=== PATIENT | female | born 1930 | race Caucasian/White ===

== ENCOUNTER → 2016-07-12 | Outpatient (CLI) | payer MEDICARE | END | disposition home or self-care (01) | LOC: LABWHC1 11:30 | PROVIDERS: ATTEND Internal Medicine | DX: E16.2 Hypoglycemia, unspecified (principal) | CPT/HCPCS: 36415; 82941; 84681 ==

== ENCOUNTER → 2016-07-19 | Outpatient (CLI) | payer MEDICARE ==
--- NOTE | 2016-07-20 08:56 | MM ---
Reason for exam: additional evaluation requested from prior study. Last mammogram was performed 1 year ago. History: Patient is postmenopausal and has history of breast cancer at age 54. Family history of breast cancer in maternal aunt at age 70 and breast cancer in paternal aunt at age 70. Radiation therapy of the left breast, 1984. Lumpectomy of the left breast. Physical Findings: Nurse Summary: Findings indicate a 1 x 1.5cm nodule in the right breast in the 12 o'clock position (nurse ts). [facility] Diagnostic Mammo w CAD [facility] Bilateral CC and MLO view(s) were taken. Prior study comparison: July 14, 2015, bilateral MG 3d diag mammo w/cad [place]. There are scattered fibroglandular densities. There is chronic nodularity in the right breast. Asymmetric breast tissue in the right greater than left breast. These results were verbally communicated with the patient and result sheet given to the patient on 07/19/16. ASSESSMENT: Incomplete: need additional imaging evaluation, BI-RAD 0 RECOMMENDATION: Ultrasound of the right breast.
--- NOTE | 2016-07-20 08:57 | USB ---
Reason for exam: additional evaluation requested from abnormal screening. History: Patient is postmenopausal and has history of breast cancer at age 54. Family history of breast cancer in maternal aunt at age 70 and breast cancer in paternal aunt at age 70. Radiation therapy of the left breast, 1984. Lumpectomy of the left breast. US Breast Limited RT Right breast ultrasound indicates a 0.41 x 0.23 x 0.9cm too small to characterize lesion at 9 o'clock. These results were verbally communicated with the patient and result sheet given to the patient on 07/19/16. ASSESSMENT: Benign, BI-RAD 2 RECOMMENDATION: Routine screening mammogram of both breasts in 1 year. Manage on a clinical basis with regard to palpable abnormality.
== END ==
LOC: RADMAMWWP 12:44
PROVIDERS: ATTEND Internal Medicine
DX: R92.2 Inconclusive mammogram (principal); R92.8 Other abnormal and inconclusive findings on diagnostic imaging of breast
CPT/HCPCS: 76642; G0204

== ENCOUNTER → 2016-11-13 | Outpatient (CLI) | payer MEDICARE ==
--- NOTE | 2016-11-13 13:02 | US ---
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 EXAM MEASUREMENTS: RIGHT: Peak Systolic Velocity (PSV) cm/sec ----- Right CCA: 88.0 ----- Right ICA: 103.4 ----- Right ECA: 93.6 ICA/CCA ratio: 1.5 RIGHT: End Diastole cm/sec ----- Right CCA: 20.6 ----- Right ICA: 32.0 ----- Right ECA: 8.9 LEFT: Peak Systolic Velocity (PSV) cm/sec ----- Left CCA: 87.7 ----- Left ICA: 88.8 ----- Left ECA: 78.4 ICA/CCA ratio: 1.3 LEFT: End Diastole cm/sec ----- Left CCA: 23.9 ----- Left ICA: 33.2 ----- Left ECA: 6.5 VERTEBRALS (direction of flow): Right Vertebral: Antegrade Left Vertebral: Antegrade Mild plaque, no significant velocity elevations IMPRESSION: Minimal aguilar scale plaquing with no hemodynamically significant stenosis within either c arotid system.
--- NOTE | 2016-11-14 09:38 | ECHOF ---
Referral Reason:I34.0 mitral valve regurg MEASUREMENTS -------- HEIGHT: 154.9 cm WEIGHT: 57.6 kg BP: 127/71 RVIDd: 2.9 cm (< 3.3) IVSd: 1.0 cm (0.6 - 1.1) LVIDd: 3.8 cm (3.9 - 5.3) LVPWd: 1.0 cm (0.6 - 1.1) IVSs: 1.3 cm LVIDs: 2.7 cm LVPWs: 1.3 cm LAESV Index (A-L): 32.60 ml/m Ao Diam: 2.8 cm (2.0 - 3.7) AV Cusp: 1.2 cm (1.5 - 2.6) LA Diam: 2.9 cm (2.7 - 3.8) MV E Steven: 1.39 m/s MV DecT: 410 ms MV A Steven: 2.02 m/s MV E/A Ratio: 0.69 RAP: 5.00 mmHg RVSP: 41.05 mmHg FINDINGS -------- Sinus rhythm. This was a technically good study. The left ventricular size is normal. Left ventricular wall thickness is normal. Overall left ventricular systolic function is normal with, an EF between 55 - 60 %. The right ventricle is normal in size and function. LA is midly dilated 29-33ml/m2. RA appears enlarged. Aortic valve is trileaflet and is mildly thickened. There is no evidence of aortic regurgitation. There is no evidence of aortic stenosis. The mitral valve leaflets are mild to moderately thickened. Moderate mitral annular calcification present. Moderate mitral regurgitation is present. Mild mitral stenosis. Vktq-wx-yawzsoep tricuspid regurgitation present. There is mild pulmonary hypertension. The right ventricular systolic pressure, as measured by Doppler, is 41.05mmHg. The pulmonic valve was not well visualized. The aortic root size is normal. Normal inferior vena cava with normal inspiratory collapse consistent with estimated right atrial pressure of 5 mmHg. Echo free space may represent effusion or a pericardial fat pad. CONCLUSIONS -------- 1. Sinus rhythm. 2. Moderate mitral regurgitation is present. 3. Mild mitral stenosis. 4. Zetg-ne-yogfawht tricuspid regurgitation present. 5. There is mild pulmonary hypertension. 6. The right ventricular systolic pressure, as measured by Doppler, is 41.05mmHg. 7. The pulmonic valve was not well visualized. 8. The aortic root size is normal. 9. Echo free space may represent effusion or a pericardial fat pad. 10. This was a technically good study. 11. The left ventricular size is normal. 12. Overall left ventricular systolic function is normal with, an EF between 55 - 60 %. 13. LA is midly dilated 29-33ml/m2. 14. RA appears enlarged. 15. Aortic valve is trileaflet and is mildly thickened. 16. The mitral valve leaflets are mild to moderately thickened. 17. Moderate mitral annular calcification present. CAR HOP: Tanner Posadas RDCS
== END | disposition home or self-care (01) ==
LOC: RADUSMAIN 10:44
PROVIDERS: ATTEND Internal Medicine
DX: I08.3 Combined rheumatic disorders of mitral, aortic and tricuspid valves (principal); I27.2 Other secondary pulmonary hypertension; I65.23 Occlusion and stenosis of bilateral carotid arteries
CPT/HCPCS: 93306; 93880

== ENCOUNTER → 2017-01-29 | Outpatient (CLI) | payer MEDICARE ==
[2017-01-29 15:04] LABS: Appearance,Urine Clear (Clear); Bilirubin,Urine Negative (Negative); Glucose,Urine (UA) Negative (Negative); Ketones,Urine Negative (Negative); Leukocyte Esterase,Urine Trace (Negative); Mucus,Urine Rare /hpf; Nitrite,Urine Negative (Negative); PH, Urine 6.5 (5.0-8.0); Particle Count 1300; Protein,Urine Negative (Negative); RBC,Urine <1 /hpf (0-5); Specific Gravity,Urine 1.012 (1.001-1.035); Squamous Epithelial Cell,Urine <1 /hpf (0-4); UA Billing (MACRO vs. MICRO) MICRO; Urobilinogen,Urine <2.0 mg/dL (<2.0); WBC,Urine <1 /hpf (0-5)
--- NOTE | 2017-01-29 17:55 | XR ---
EXAMINATION TYPE: XR shoulder complete RT DATE OF EXAM: 01/29/2017 COMPARISON: NONE HISTORY: 86 year-old female right shoulder pain TECHNIQUE: 3 views FINDINGS: Mild degenerative joint space narrowing and marginal spurring at the acromioclavicular joint. Subacro mial space is preserved. There is mild degenerative spurring inferior aspect of the glenohumeral join t. No acute fracture or dislocation. ACDF hardware. IMPRESSION: 1. Mild degenerative spurring at the glenohumeral joint. 2. Mild AC joint OA.
--- NOTE | 2017-01-29 18:22 | XR ---
EXAMINATION TYPE: XR Hip Complete LT DATE OF EXAM: 01/29/2017 COMPARISON: 04/19/2012 HISTORY: 86 year-old female right shoulder and left hip pain TECHNIQUE: 2 views FINDINGS: There is end-stage left hip degenerative change with complete loss of joint space, extensiv e subchondral sclerosis, and marginal spurring. No acute fracture or dislocation seen. IMPRESSION: Progression to end-stage left hip osteoarthrosis.
== END | disposition home or self-care (01) ==
LOC: RADXRMAIN 14:01
PROVIDERS: ATTEND Internal Medicine
DX: M19.011 Primary osteoarthritis, right shoulder (principal); M16.12 Unilateral primary osteoarthritis, left hip; Z00.00 Encounter for general adult medical examination without abnormal findings
CPT/HCPCS: 73502; 81001

== ENCOUNTER → 2017-04-09 | Outpatient (CLI) | payer MEDICARE ==
[2017-04-09 12:47] VITALS: BP 123/60; PULSE 65; RESP 16
--- NOTE | 2017-04-10 05:51 | P.PN ---
Subjective Progress Note Date: 04/09/17 This is follow-up visit for this patient with a history of severe and chronic low back pain secondary to lumbar degenerative disc disease, lumbar facet arthropathy, and lumbar spinal stenosis we have done lumbar epidural steroid injections almost 2 years ago , and she had excellent pain relief until recently ,when she started having severe lower back pain after she fell , the pain is constant intensity of the pain, is 7/10 and increases with ,any activity , and radiated to the lower extremities , she denies any fever or night sweats with , she is ambulating with difficulty , patient currently on [place] 5/325 every 6 hours , and she is getting prescription refills from her primary care doctor at the Patient denies any side effects of the medication, denies excessive drowsiness or sleepiness, denies suicidal ideation, and reports that the current pain medication is NOT helping To control the pain and improve activity of daily living . Patient denies any motor or sensory deficit, denies change in bowel movement or urination, patient denies any fever or night sweats and patient here for follow-up visit and medication refill Objective - Vital Signs Vital signs: Vital Signs Temp Pulse 65 04/09/17 12:34 Resp 16 04/09/17 12:34 BP 123/60 04/09/17 12:34 Pulse Ox Intake & Output 04/09/17 04/09/17 04/10/17 06:59 18:59 06:59 Weight 57.606 kg - Exam Physical Examinations : 1-Constitutiona : Cooperative , not in acute distress . 2-HEENT : nech ; supple , no Lymphadenopathy , normal thyroid size . eyes : no ptosis , no icterus, no photophobia . ENT : normal of hearing , normal oropharynx , no Thrush . 3- Respiratory : Chest clear to auscultations Bilaterally , no wheezing , no Rhonchi . 4- Cardiovascular : regular rate and rhythem , S1 , S2 , no S3 , no S4. 5- Gastrointestinal : abdomen soft no tenderness , bowel sounds positive all four quadrents , no organomegally . 6- Genitourinary : Defferred . 7- neurologic : Cranial nerve II to XII intact , no focal neurological deffecit . 8-psychatric : alert , oriented X 3 , appropriate affect , intact judgment and insight . 9-Lymphatic : no Lymphadenopathy . 10- musculoskeltal : , Lumber spine = normal moter stegnth lower extremities ,thigh and legs .3-4/5 deep tendon reflexes : normal Knee Jerk , normal ankle Jerk . lumber facet Loading Test positive strait leg raising test positive at 30 degree Right , positve at 30 degree Left Fabere test positive Right and positive Left Sever tenderness over the trochanteric bursa on the Left side Assessment and Plan Plan: Assessment and plan= severe and chronic low back pain secondary to lumbar degenerative disc disease, lumbar spondylosis with lumbar facet arthropathy And currently she is having also severe left trochanteric bursitis Patient will be good candidate to have lumbar epidural steroid injections, and at the same time he can do a left trochanteric bursa steroid injections , she is currently using [place] 5/325 every 6 hours when necessary and is not helping enough, she denies any side effects of the medication , patient will continue to give prescription refills from her primary care , and she will be scheduled to have lumbar epidural Steroid injection and left trochanteric bursa steroid injections under fluoroscopy guidance, Time with Patient: Less than 30
== END | disposition home or self-care (01) ==
LOC: PNWHC3 11:55
PROVIDERS: ATTEND Specialist
DX: G89.29 Other chronic pain (principal); M54.5 Low back pain; M48.061 Spinal stenosis, lumbar region without neurogenic claudication; M51.36 Other intervertebral disc degeneration, lumbar region; M70.62 Trochanteric bursitis, left hip; M46.86 Other specified inflammatory spondylopathies, lumbar region; Z79.52 Long term (current) use of systemic steroids; Z79.891 Long term (current) use of opiate analgesic
CPT/HCPCS: 99211

== ENCOUNTER 2017-05-07 08:58 | Day surgery (SDC) | payer MEDICARE ==
[2017-05-03 15:31] VITALS: BMI 23.6
[2017-05-07] MEDS ORDERED: LIDOCAINE 1% 20 ML VIAL (10MG/ML) FOR IV START INTRADERMA ONE (09:08)
[2017-05-07 09:24] VITALS: TEMP 97.7
[2017-05-07] MEDS ORDERED: LACTATED RINGERS 1,000 ML IV ONE (09:27)
--- NOTE | 2017-05-07 10:13 | P.PCN ---
Date of Procedure: 05/07/17 Surgeon: Rosendo Serrano Pathology: none sent Condition: stable Disposition: PACU Description of Procedure: PREOPERATIVE DIAGNOSIS: 1-Lumbar radiculitis. 2. Left great trochanteric bursitis. POSTOPERATIVE DIAGNOSIS: same PROCEDURE 1. Lumbar epidural steroid injection under fluoroscopic guidance at the L5-S1 level. 2. Lumbar epidurogram. 3. Left greater trochanteric bursa steroid injection with fluoroscopy. ANESTHESIA: Local with 1% lidocaine; IV sedation with Versed/fentanyl. EBL: Minimal PROCEDURE INDICATION: The patient with low back pain and radiculitis symptoms unresponsive to conservative treatment. Fluoroscopy was used to optimize visualization of the needle placement and to maximize safety. Patient does take 81 mg aspirin, last used yesterday. PROCEDURE DESCRIPTION / TECHNIQUE: The patient was seen and identified in the preoperative area. Risks, benefits, complications, and alternatives were discussed with the patient, including but not limited to bleeding, infection, nerve damage, allergic reactions to medications, and incomplete pain relief. The patient agreed to proceed with the procedure and signed the consent after all questions were answered. IV was started, and vital signs were stable. Patient was taken to the OR and time out was completed to confirm patient position, procedure, laterality of pain, and allergies. The patient was placed in the prone position on procedure table and a pillow was placed under the abdomen to reduce lumbar lordosis. The lumbosacral area was prepped and draped in the usual sterile fashion. Critical pause was taken. Vital signs were closely monitored during the procedure. Conscious sedation was used during the procedure to decrease patients anxiety. Using anterior-posterior fluoroscopy, the L5-S1 interlaminar space was identified and the skin over this site was marked and then infiltrated with 1% lidocaine subcutaneously. Subsequently, a 20-gauge 3.5-inch Tuohy epidural needle was inserted and advanced toward the epidural space using the Loss of resistance technique and guided by AP and lateral fluoroscopy. The correct needle position in the epidural space was verified with the injection of 2 mL of the water soluble contrast dye Omnipaque 300 contrast and observing an excellent epidurogram with the epidural spread of the dye, after negative aspiration for blood and CSF and in the absence of paresthesias. Again after negative aspiration, a 6 ml mixture containing 40 mg of Depo Medrol and 3 ml of preservative free Normal Saline, and 2 ml of preservative free lidocaine 1% solution was injected and a washout of epidurogram was seen. Needle was withdrawn intact. Attention was then turned to the right hip. Using anteroposterior and lateral fluoroscopy, the left greater trochanteric area was identified. Subsequently, after localization with 1% lidocaine, a 22-gauge, 3-1/2-inch needle was advanced under fluoroscopy towards this area. Once in the correct position, and after negative aspiration and with the absence of paresthesias, 7 mL of solution containing 6 ml 0.5% preservative-free bupivacaine and Depo Medrol 40 mg was injected. The needle was subsequently removed. At the end of the procedure, skin was cleansed, and bandages were applied. COMPLICATIONS: None COMMENTS: DISPOSITION / PLANS: The patient was placed in a supine position and transferred to the recovery area in a stable condition for observation. There was no evidence of lower extremity motor or sensory deficit after the procedure. Patient was discharged from the recovery room after meeting discharge criteria. Home discharge instructions were given to the patient by the staff. The patient was reexamined prior to discharge and there were no issues. The patient will schedule a repeat procedure in 4-6 weeks.
--- NOTE | 2017-05-07 10:29 | FL ---
EXAMINATION TYPE: FL guided pain mgmt statistic DATE OF EXAM: 05/07/2017 CLINICAL HISTORY: Low back and hip pain. TECHNIQUE: Fluoroscopy. COMPARISON: None. FINDINGS: Fluoroscopic guidance was provided during pain relief procedure performed by Dr. Serrano . A total of 9 seconds of fluoroscopic time was utilized during the procedure and 4 spot images are acq uired. Images acquired shows needle localization at level of lesser trochanter in the hip and at lef t and at level of lumbosacral junction epidural space from posterior approach. IMPRESSION: As Above.
[2017-05-07 11:17] VITALS: BP 107/58; PULSE 61; RESP 20
== END 2017-05-07 11:44 | disposition home or self-care (01) ==
LOC: ORPAIN 08:58
PROVIDERS: ATTEND Anesthesiology
DX: G89.29 Other chronic pain (principal); M51.16 Intervertebral disc disorders with radiculopathy, lumbar region; M48.061 Spinal stenosis, lumbar region without neurogenic claudication; M47.26 Other spondylosis with radiculopathy, lumbar region; M70.62 Trochanteric bursitis, left hip; Y93.9 Activity, unspecified; Z91.81 History of falling; I10 Essential (primary) hypertension; C50.919 Malignant neoplasm of unspecified site of unspecified female breast
CPT/HCPCS: 62323; 20610; J2250; J1030; Q9965

== ENCOUNTER 2017-06-05 09:28 | Day surgery (SDC) | payer MEDICARE ==
[2017-05-31 11:31] VITALS: BMI 23.2
[~2017-06-05 09:28] MED LIST: LACTATED RINGERS 1,000 ML IV SCH
[2017-06-05 09:56] VITALS: TEMP 98
[2017-06-05] MEDS ORDERED: LACTATED RINGERS 1,000 ML IV ONE (10:01)
[2017-06-05] MEDS ORDERED: LIDOCAINE 1% 20 ML VIAL (10MG/ML) FOR IV START INTRADERMA ONE (10:01)
--- NOTE | 2017-06-05 11:01 | P.PCN ---
Date of Procedure: 06/05/17 Procedure(s) Performed: PREOPERATIVE DIAGNOSIS: 1- Lumbar radiculopathy. 2-left trochanteric bursitis POSTOPERATIVE DIAGNOSIS: Surmise preoperative diagnoses. PROCEDURE 1. Lumbar epidural steroid injection under fluoroscopic guidance at the L5-S1 level. 2. Lumbar epidurogram. 3. Left trochanteric bursa steroid injection under fluoroscopy guidance. ANESTHESIA: Local with 1% lidocaine 3 ml and , moderate sedation with intravenous Versed 1 mg , EBL: Minimal PROCEDURE INDICATION: The patient with low back pain and radiculitis symptoms unresponsive to conservative treatment. Fluoroscopy was used to optimize visualization of the needle placement and to maximize safety. PROCEDURE DESCRIPTION / TECHNIQUE: The patient was seen and identified in the preoperative area. Risks, benefits , complications including but not limited to infections ,bleeding ,allergic reaction to the medications ,nerve damage and not complete pain releife , and alternatives were discussed with the patient. The patient agreed to proceed with the procedure and signed the consent. IV was started, and vital signs were stable. Patient was taken to the OR and time out was completed. The patient was placed in the prone position on procedure table and a pillow was placed under the abdomen to reduce lumbar lordosis. The lumbosacral area was prepped and draped in the usual sterile fashion.ere closely monitored during the procedure. Conscious sedation was used during the procedure to decrease patients anxiety. Vital signs was monitered during the entire procedure. Using anterior-posterior fluoroscopy, the L5-S1 interlaminar space was identified and the skin over this site was marked and then infiltrated with 1% lidocaine subcutaneously. Subsequently, a 20-gauge Tuohy epidural needle was inserted and advanced toward the epidural space using the ``Loss of resistance technique and guided by AP and lateral fluoroscopy. The correct needle position in the epidural space was verified with the injection of 2 mL of the water soluble contrast dye Isovue 200 contrast and observing an excellent epidurogram with the epidural spread of the dye, after negative aspiration for blood and CSF and in the absence of paresthesias. Again after negative aspiration, a 6 ml mixture containing 40 mg depomedrol and 2 ml of preservative free Normal Saline, and 2 ml of preservative free lidocaine 1% solution was injected and a washout of epidurogram was seen. Needle was withdrawn intact, skin was cleansed, and bandages were applied. then the left hip area prepped with Betadine 3, then under sterile technique using 22-gauge Quincke -type spinal needle, and after local infiltration of the skin and subcutaneous tissue with lidocaine 1% 2 mL, the 22-gauge Quincke- type spinal needle advanced slowly under fluoroscopy and placed in the left trochanteric bursa, needle placement confirmed under fluoroscopy then after negative aspiration Marcaine 0.5% 5 ML and 40 mg of Kenalog injected after negative aspiration COMPLICATIONS: None DISPOSITION / PLANS: The patient was placed in a supine position and transferred to the recovery area in a stable condition for observation. There was no evidence of lower extremity motor or sensory deficit after the procedure. Patient was discharged from the recovery room after meeting discharge criteria. Home discharge instructions were given to the patient by the staff. The patient was reexamined prior to discharge. The patient will schedule a follow up in the clinic in 2-4 weeks.
[2017-06-05] MEDS ORDERED: IV FLUID CONTINUATION 1,000 ML IV ONE (11:03)
[2017-06-05 11:06] VITALS: PULSE 65; RESP 16
--- NOTE | 2017-06-05 11:19 | FL ---
EXAMINATION TYPE: FL guided pain mgmt statistic DATE OF EXAM: 06/05/2017 COMPARISON: NONE HISTORY: Back pain TECHNIQUE: Fluoroscopy. FINDINGS/IMPRESSION: Fluoroscopic guidance was provided during procedure performed by Dr. Dixon. A total of 7 seconds of fluoroscopic time was utilized during the procedure and 2 spot images was ac quired demonstrating localization of the lower lumbar spine.
[2017-06-05 11:22] VITALS: BP 123/71
== END 2017-06-05 11:56 | disposition home or self-care (01) ==
LOC: ORPAIN 09:28
PROVIDERS: ATTEND Specialist
DX: M54.16 Radiculopathy, lumbar region (principal); M70.62 Trochanteric bursitis, left hip; I10 Essential (primary) hypertension
CPT/HCPCS: 62323; 20610; J2250; J1030; Q9966; 99152

== ENCOUNTER 2017-07-10 06:54 | Day surgery (SDC) | payer MEDICARE ==
[2017-07-05 12:01] VITALS: BMI 23.0
[2017-07-10] MEDS ORDERED: LACTATED RINGERS 1,000 ML IV SCH (07:15)
[2017-07-10 07:34] VITALS: RESP 18; TEMP 97.3
[2017-07-10] MEDS ORDERED: LACTATED RINGERS 1,000 ML IV ONE (07:34)
[2017-07-10] MEDS ORDERED: LIDOCAINE 1% 20 ML VIAL (10MG/ML) FOR IV START INTRADERMA ONE (07:34)
--- NOTE | 2017-07-10 08:17 | P.PCN ---
Date of Procedure: 07/10/17 Surgeon: Rosendo Serrano Pathology: none sent Condition: stable Disposition: PACU Description of Procedure: PREOPERATIVE DIAGNOSIS: 1-Lumbar radiculitis. 2. Left greater trochanteric bursitis. POSTOPERATIVE DIAGNOSIS: same PROCEDURE 1. Lumbar epidural steroid injection under fluoroscopic guidance at the L5-S1 level. 2. Lumbar epidurogram. 3. Left greater trochanteric bursa steroid injection with fluoroscopy. ANESTHESIA: Local with 1% lidocaine; IV sedation with Versed/fentanyl. EBL: Minimal PROCEDURE INDICATION: The patient with low back pain and radiculitis symptoms, along with left hip pain unresponsive to conservative treatment, presents for LESI + left GTB steroid injection with fluoroscopy. Fluoroscopy was used to optimize visualization of the needle placement and to maximize safety. Patient does take 81 mg aspirin, last used three days ago. PROCEDURE DESCRIPTION / TECHNIQUE: The patient was seen and identified in the preoperative area. Risks, benefits, complications, and alternatives were discussed with the patient, including but not limited to bleeding, infection, nerve damage, allergic reactions to medications, and incomplete pain relief. The patient agreed to proceed with the procedure and signed the consent after all questions were answered. IV was started, and vital signs were stable. Patient was taken to the OR and time out was completed to confirm patient position, procedure, laterality of pain, and allergies. The patient was placed in the prone position on procedure table and a pillow was placed under the abdomen to reduce lumbar lordosis. The lumbosacral area was prepped and draped in the usual sterile fashion. Critical pause was taken. Vital signs were closely monitored during the procedure. Conscious sedation was used during the procedure to decrease patients anxiety. Using anterior-posterior fluoroscopy, the L5-S1 interlaminar space was identified and the skin over this site was marked and then infiltrated with 1% lidocaine subcutaneously. Subsequently, a 20-gauge 3.5-inch Tuohy epidural needle was inserted and advanced toward the epidural space using the Loss of resistance technique and guided by AP and lateral fluoroscopy. The correct needle position in the epidural space was verified with the injection of 2 mL of the water soluble contrast dye Omnipaque 300 contrast and observing an excellent epidurogram with the epidural spread of the dye, after negative aspiration for blood and CSF and in the absence of paresthesias. Again after negative aspiration, a 6 ml mixture containing 40 mg of Depo Medrol and 3 ml of preservative free Normal Saline, and 2 ml of preservative free lidocaine 1% solution was injected and a washout of epidurogram was seen. Needle was withdrawn intact. Attention was then turned to the right hip. Using anteroposterior and lateral fluoroscopy, the left greater trochanteric area was identified. Subsequently, after localization with 1% lidocaine, a 22-gauge, 3-1/2-inch needle was advanced under fluoroscopy towards this area. Once in the correct position, and after negative aspiration and with the absence of paresthesias, 7 mL of solution containing 6 ml 0.5% preservative-free bupivacaine and Depo Medrol 40 mg was injected. The needle was subsequently removed. At the end of the procedure, skin was cleansed, and bandages were applied. COMPLICATIONS: None COMMENTS: DISPOSITION / PLANS: The patient was placed in a supine position and transferred to the recovery area in a stable condition for observation. There was no evidence of lower extremity motor or sensory deficit after the procedure. Patient was discharged from the recovery room after meeting discharge criteria. Home discharge instructions were given to the patient by the staff. The patient was reexamined prior to discharge and there were no issues. The patient will schedule a follow-up in clinic in 4-6 weeks.
[2017-07-10] MEDS ORDERED: IV FLUID CONTINUATION 1,000 ML IV ONE (08:21)
[2017-07-10 08:24] VITALS: PULSE 65
[2017-07-10 08:48] VITALS: BP 129/61
--- NOTE | 2017-07-10 09:11 | FL ---
EXAMINATION TYPE: FL guided pain mgmt statistic DATE OF EXAM: 07/10/2017 HISTORY: Pain 14 sec fluoro,
== END 2017-07-10 09:11 | disposition home or self-care (01) ==
LOC: ORPAIN 06:54
PROVIDERS: ATTEND Anesthesiology
DX: M54.16 Radiculopathy, lumbar region (principal); M70.62 Trochanteric bursitis, left hip; I10 Essential (primary) hypertension; E78.5 Hyperlipidemia, unspecified; K21.9 Gastro-esophageal reflux disease without esophagitis; Z79.82 Long term (current) use of aspirin
CPT/HCPCS: 62323; 20611; J2250; J1030; Q9966; 20610; 99152

== ENCOUNTER → 2017-07-24 | Outpatient (CLI) | payer MEDICARE ==
[2017-07-24 14:49] VITALS: BP 123/70; PULSE 71; RESP 16
--- NOTE | 2017-07-24 19:18 | P.PN ---
Subjective Progress Note Date: 07/24/17 This is a follow-up visit for this 87 years old female with a chronic history of severe low back pain, diagnosed with lumbar spondylolisthesis, lumbar degenerative disc disease and left trochanteric bursitis, status post lumbar epidural steroid injection and left trochanteric bursa steroid injection under fluoroscopy guidance 3, she reported that her pain improved significantly after the injection, and currently her pain level fluctuates between 2-3/10 and she is able to function more, as she continued to use wheelchair for ambulation , she continued to use [place] 5/325 when necessary for pain, is getting prescription refills from her primary care and she denies any side effect of the medication, she denies any change in the bowel movements or urination she denies any fever or night sweats Objective - Vital Signs Vital signs: Vital Signs Temp Pulse 71 07/24/17 14:31 Resp 16 07/24/17 14:31 BP 123/70 07/24/17 14:31 Pulse Ox 98 07/24/17 14:31 Intake & Output 07/24/17 07/24/17 07/25/17 06:59 18:59 06:59 Weight 56.245 kg - Exam Physical Examinations : 1-Constitutiona : Cooperative , not in acute distress . 2-HEENT : nech ; supple , no Lymphadenopathy , normal thyroid size . eyes : no ptosis , no icterus, no photophobia . ENT : normal of hearing , normal oropharynx , no Thrush . 3- Respiratory : Chest clear to auscultations Bilaterally , no wheezing , no Rhonchi . 4- Cardiovascular : regular rate and rhythem , S1 , S2 , no S3 , no S4. 5- Gastrointestinal : abdomen soft no tenderness , bowel sounds , no organomegally . 6- Genitourinary : Defferred . 7- neurologic : Cranial nerve II to XII intact , no focal neurological deffecit . 8-psychatric : alert , oriented X 3 , appropriate affect , intact judgment and insight . 9-Lymphatic : no Lymphadenopathy . Assessment and Plan Plan: Assessment and plan= chronic, severe low back pain secondary to lumbar degenerative disc disease lumbar spondylolisthesis and left trochanteric bursitis She had a good result after the lumbar epidural steroid injections and left trochanteric bursa steroid injection, she continued to use pain medication on when necessary basis, [place] 5/320 5/2-1 tablet when necessary every 8 hours, she denies any side effect of the medication she denies any excessive drowsiness or sleepiness and she is getting prescription refills from her primary care, patient will follow up with the pain clinic when necessary Time with Patient: Less than 30
== END | disposition home or self-care (01) ==
LOC: PNWHC3 14:20
PROVIDERS: ATTEND Specialist
DX: G89.29 Other chronic pain (principal); M54.5 Low back pain; M43.16 Spondylolisthesis, lumbar region; M51.36 Other intervertebral disc degeneration, lumbar region; M70.62 Trochanteric bursitis, left hip; Z79.891 Long term (current) use of opiate analgesic
CPT/HCPCS: 99211

== ENCOUNTER → 2017-09-10 | Outpatient (CLI) | payer MEDICARE ==
--- NOTE | 2017-09-10 14:13 | XR ---
EXAMINATION TYPE: XR forearm LT DATE OF EXAM: 09/10/2017 CLINICAL HISTORY: Left forearm pain. 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 TECHNIQUE: Two views of the left forearm are obtained. COMPARISON: None. FINDINGS: There is no acute fracture or dislocation seen in the left radius or ulna. The left elbow and wrist joints appear within normal limits. The overlying soft tissue demonstrate very mild soft tissue swelling at the volar aspect of the forearm overlying the mid diaphysis of the radius and ulna . There is partial visualization of extensive degenerative change of the first carpometacarpal joint. IMPRESSION: There is no acute fracture or dislocation seen in the left radius or ulna. No osseous ab normality to suggest osteomyelitis. Very mild soft tissue swelling overlying the mid diaphysis of the radius and ulna.
== END | disposition home or self-care (01) ==
LOC: RADXRMAIN 13:29
PROVIDERS: ATTEND Internal Medicine
DX: M79.89 Other specified soft tissue disorders (principal)

== ENCOUNTER → 2017-09-27 | Outpatient (CLI) | payer MEDICARE ==
--- NOTE | 2017-09-27 15:15 | MM ---
Reason for exam: screening (asymptomatic). Last mammogram was performed 1 year and 2 months ago. History: Patient is postmenopausal and has history of breast cancer at age 54. Family history of breast cancer in maternal aunt at age 70 and breast cancer in paternal aunt at age 70. Radiation therapy of the left breast, 1984. Lumpectomy of the left breast. Physical Findings: A clinical breast exam by your physician is recommended on an annual basis and results should be correlated with mammographic findings. MG 3D Screening Mammo W/Cad Bilateral CC, MLO, and CV view(s) were taken. Technologist: Xochitl Julian, RT (R)(M) Prior study comparison: July 19, 2016, bilateral MG diagnostic mammo w CAD [place]. July 19, 2016, right breast US breast limited RT. July 14, 2015, bilateral MG 3d diag mammo w/cad [place]. July 08, 2014, bilateral MG diagnostic mammo w CAD [place]. July 07, 2013, bilateral MG diagnostic mammo w CAD [place]. July 04, 2012, CAD bilateral diagnostic mammogram. July 03, 2011, CAD bilateral diagnostic mammogram. There are scattered fibroglandular densities. There is a stable right upper outer quadrant posterior depth mass back to 2013. Benign appearing bilateral calcifications. Left post treatment change. ASSESSMENT: Benign, BI-RAD 2 RECOMMENDATION: Routine screening mammogram of both breasts in 1 year.
== END | disposition home or self-care (01) ==
LOC: RADMAMWWP 09:19
PROVIDERS: ATTEND Internal Medicine
DX: Z12.31 Encounter for screening mammogram for malignant neoplasm of breast (principal)
CPT/HCPCS: 77063; 77067

== ENCOUNTER → 2017-12-11 | Outpatient (CLI) | payer MEDICARE ==
[2017-12-11 13:54] VITALS: BP 113/68; PULSE 63; RESP 16
--- NOTE | 2017-12-12 10:17 | P.PAINPG ---
Subjective Progress Note Date: 12/11/17 This is follow-up visit for this patient with a history of severe and chronic low back pain secondary to lumbar degenerative disc diseases , left trochanteric bursitis We have done interventional pain procedures lumbar epidural steroid injections, and left trochanteric bursa steroid injection, she had good pain relief, Patients currently on [place] 5/325 every 6 hours when necessary, she is getting prescription refill from her primary care Patient denies any side effects of the medication, denies excessive drowsiness or sleepiness, denies suicidal ideation, and reports that the current pain medication is helping to control the pain and improve activity of daily living Patient denies any motor or sensory deficit , patient denies any fever or night sweats, denies any change in the bowel movements or urination Physical Examinations : 1-Constitutional : Cooperative , not in acute distress . 2-HEENT : nech ; supple , no Lymphadenopathy , no Thyromegaly , normal thyroid size . eyes : no ptosis , no icterus, no photophobia . ENT : normal of hearing , normal oropharynx , no Thrush . 3- Respiratory : Chest clear to auscultations Bilaterally , no wheezing , no Rhonchi . 4- Cardiovascular : regular rate and rhythem , S1 , S2 , no S3 , no S4. 5- Gastrointestinal : abdomen soft no tenderness , bowel sounds positive all four quadrents , no organomegally . 6- Genitourinary : Defferred . 7- neurologic: Cranial nerve II to XII intact , no focal neurological deffecit . 8- Psychatric: alert , oriented X 3 , appropriate affect , intact judgment and insight . 9- Lymphatic : no Lymphadenopathy . 10- Musculoskeltal : exams of the Lumber spine =motor strength lower extremities ,thigh and legs .5/5 deep tendon reflexes : normal Knee Jerk , normal ankle Jerk . lumber facet Loading Test positive strait leg raising test positive at 30 degree , RT ,LT , Fabere test positive RT and positive LT . Range of motion: Range of motion in flexion of the lumbar spine 30 degrees Range of motion range of motion of extension of the lumbar spine 10 Sever tenderness over the trochanteric bursa onthe Left side Assessment and plan = Chronic low back pain secondary to with radiation to the lower extremities secondary to lumbar degenerative disc disease , left trochanteric bursitis. Patient could benefit from lumbar epidural steroid injections, the fluoroscopy guidance and she could benefit from left trochanteric bursa steroid injections. Procedures the risk and benefits and alternatives discussed with the patient she agreed with the preceding. Patient could benefit from naproxen 250 mg twice a day when necessary Objective - Vital Signs Vital signs: Vital Signs Temp Pulse 63 12/11/17 13:47 Resp 16 12/11/17 13:47 BP 113/68 12/11/17 13:47 Pulse Ox 99 12/11/17 13:47 Intake & Output 12/11/17 12/12/17 12/12/17 18:59 06:59 18:59 Weight 56.699 kg PQRS Measure Charge Sheet Measure #130: Documentation of Current Meds in Medical Chart: Patient's medications documented in chart Measure #226: Tobacco Use: Screen & Cessation Intervention: Pt not a tobacco user Measure #111: Pneumonia Vaccination: Pneumococcal vaccine administered or previously received Measure #47: Advance Care Plan: Advance care planning discussed & documented, pt chose/unable to give Measure #412: Opioid Treatment Agreement: No documentation of signed opioid treatment agreement Measure #408: Opioid Therapy Follow-up Evaluation: Patient had NO f/u eval minimum every 3 months during opioid therapy Measure #317: Preventitive Care & Scrn High Bld Press & F/U: Normal blood pressure, f/u not required Measure #128: Body Mass Index (BMI) Screening & Follow-up: BMI documented within normal parameters Measure #131: Pain Assessment & Follow-up: Pain positive & plan documented, Follow-up scheduled Measure #431: Unhealthy Alcohol Use Preventative Care & Scrn: Patient not identified as an unhealthy alcohol user PQRS Narrative: Smoking Status Never smoker Do You Want the Pneumonia Vaccine Up to Date Vaccine AT THIS TIME? Blood Pressure 113/68 Pain Intensity [Left Hip] 6 Scale Used Numeric (1 - 10) Hx Alcohol Use (MH) No Home Medications: Ambulatory Orders Simvastatin 40 mg PO MOWEFR 09/06/13 Aspirin 162 mg PO DAILY 11/02/14 Furosemide [Lasix] 20 mg PO MOWEFR 11/02/14 Omeprazole [PriLOSEC] 20 mg PO Q48H 11/02/14 Potassium Chloride ER [K-Dur 10] 10 meq PO MOWEFR 11/02/14 amLODIPine BESYLATE [Norvasc] 5 mg PO MOWEFR 11/02/14 Calcium Carbonate/Vitamin D3 [Calcium 600 + Vit D Tablet] 1 tab PO DIRECTED 01/27/15 HYDROcodone/APAP 5-325MG [[place] 5-325] 0.5 - 1 tab PO Q8HR PRN 01/27/15 Citalopram Hydrobromide [Citalopram HBr] 10 mg PO DAILY 07/05/17 Tolterodine Tartrate [Detrol] 1 tab PO DAILY 12/11/17 Controlled Substance Measures - Controlled Substance Measures Is patient prescribed a controlled substance at discharge?: No When asked, does pt state using other controlled substances?: No If prescribed controlled substance>3 days was MAPS reviewed?: No If Rx opioid, was Start Talking consent form obtained?: No If opioid is for acute pain is fill amount 7 days or less?: No Was information provided regarding opioid addiction?: No
== END | disposition home or self-care (01) ==
LOC: PNWHC3 13:17
PROVIDERS: ATTEND Specialist
DX: G89.29 Other chronic pain (principal); M51.36 Other intervertebral disc degeneration, lumbar region; M70.62 Trochanteric bursitis, left hip; Z79.899 Other long term (current) drug therapy; Z79.82 Long term (current) use of aspirin; Z79.891 Long term (current) use of opiate analgesic
CPT/HCPCS: 99211

== ENCOUNTER 2017-12-26 08:44 | Day surgery (SDC) | payer MEDICARE ==
[2017-12-19 15:03] VITALS: BMI 23.6
[2017-12-26] MEDS ORDERED: SODIUM CHLORIDE 0.9% 500 ML 500 ML IV SCH (08:59)
[2017-12-26 09:23] VITALS: TEMP 98.1
--- NOTE | 2017-12-26 10:19 | P.PCN ---
Date of Procedure: 12/26/17 Procedure(s) Performed: PREOPERATIVE DIAGNOSIS: 1- Lumbar Degenerative Disc Diseases 2-left trochanter bursitis POSTOPERATIVE DIAGNOSIS: 1-Lumber Degenerative Disc Diseases 2-left trochanteric bursitis PROCEDURE 1. Lumbar epidural steroid injection under fluoroscopic guidance at the L5-S1 level. 2. Lumbar epidurogram. 3-left trochanteric bursa steroid injections under fluoroscopy guidance ANESTHESIA: Local with 1% lidocaine 3 ml and , moderate sedation with intravenous Versed 1 mg ,and fentanyle 50 Mcg EBL: Minimal PROCEDURE INDICATION: The patient with low back pain and radiculitis symptoms unresponsive to conservative treatment. Fluoroscopy was used to optimize visualization of the needle placement and to maximize safety. PROCEDURE DESCRIPTION / TECHNIQUE: The patient was seen and identified in the preoperative area. Risks, benefits , complications including but not limited to infections ,bleeding ,allergic reaction to the medications ,nerve damage and not complete pain releife , and alternatives were discussed with the patient. The patient agreed to proceed with the procedure and signed the consent. IV was started, and vital signs were stable. Patient was taken to the OR and time out was completed. The patient was placed in the prone position on procedure table and a pillow was placed under the abdomen to reduce lumbar lordosis. The lumbosacral area was prepped and draped in the usual sterile fashion.ere closely monitored during the procedure. Conscious sedation was used during the procedure to decrease patients anxiety. Vital signs was monitered during the entire procedure. Using anterior-posterior fluoroscopy, the L5-S1 interlaminar space was identified and the skin over this site was marked and then infiltrated with 1% lidocaine subcutaneously. Subsequently, a 20-gauge Tuohy epidural needle was inserted and advanced toward the epidural space using the ``Loss of resistance technique and guided by AP and lateral fluoroscopy. The correct needle position in the epidural space was verified with the injection of 2 mL of the water soluble contrast dye Isovue 200 contrast and observing an excellent epidurogram with the epidural spread of the dye, after negative aspiration for blood and CSF and in the absence of paresthesias. Again after negative aspiration, a 6 ml mixture containing 40 mg of Depo-Medrol, and 2 ml of preservative free Normal Saline, and 2 ml of preservative free lidocaine 1% solution was injected and a washout of epidurogram was seen. Needle was withdrawn intact, skin was cleansed, and bandages were applied. In the left trochanteric bursa area prepped with chlorhexidine 3 , and under sterile technique 25-gauge Quincke Needle advanced slowly under fluoroscopy and placed in the left trochanteric bursa area, needle placement confirmed with AP and lateral views and after negative aspiration, bupivacaine 0.5% 5 ML and 20 mg of Depo-Medrol injected in the left trochanteric bursa after negative aspiration patient tolerated the procedure well without any complications COMPLICATIONS: None DISPOSITION / PLANS: The patient was placed in a supine position and transferred to the recovery area in a stable condition for observation. There was no evidence of lower extremity motor or sensory deficit after the procedure. Patient was discharged from the recovery room after meeting discharge criteria. Home discharge instructions were given to the patient by the staff. The patient was reexamined prior to discharge. The patient will schedule a follow up in the clinic in 2-4 weeks.
[2017-12-26 11:34] VITALS: BP 127/58; PULSE 74; RESP 18
--- NOTE | 2017-12-26 14:15 | FL ---
Fluoroscopy HISTORY: Pain 3 seconds fluoroscopy time supplied to the referring clinician. 2 intraoperative C-arm images docume nt the procedure. See dictated report from anesthesia.
== END 2017-12-26 11:15 | disposition home or self-care (01) ==
LOC: ORPAIN 08:44
PROVIDERS: ATTEND Specialist
DX: M51.16 Intervertebral disc disorders with radiculopathy, lumbar region (principal); M70.62 Trochanteric bursitis, left hip; Z79.82 Long term (current) use of aspirin
CPT/HCPCS: 62323; 20610; J2250; J1030; Q9966; 99152

== ENCOUNTER → 2018-02-13 | Outpatient (CLI) | payer MEDICARE ==
[2018-02-13 14:07] VITALS: BP 103/54; PULSE 69; RESP 16
--- NOTE | 2018-02-13 14:36 | P.PAINPG ---
Subjective Progress Note Date: 02/13/18 Principal diagnosis: Lumbar spinal stenosis, left trochanteric bursitis This is a very pleasant 87-year-old woman with a history of lumbar spinal stenosis and left trochanteric bursitis or presents today for follow-up. She recently went to injection therapy including lumbar steroid injection trochanteric bursa injection. She reports these didn't afford her some relief of her pain. She does have significant pain especially with movement. 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 She is currently maintained on hydrocodone by her primary care physician. She is considering trialing CBD oil. Objective - Vital Signs Vital signs: Vital Signs Temp Pulse 69 02/13/18 13:54 Resp 16 02/13/18 13:54 BP 103/54 02/13/18 13:54 Pulse Ox 98 02/13/18 13:54 Intake & Output 02/12/18 02/13/18 02/13/18 18:59 06:59 18:59 Weight 56.699 kg - Exam General: The patient is alert and oriented. Patient is not sedated Patient answers all question appropriately. Cardiac: Heart is regular in rate and rhythm Respiratory: Clear to auscultation. No audible wheezes. Abdomen: Soft nontender nondistended. Musculoskeletal: The patient is wheelchair bound today and has significant difficulties with ambulation and with moving her left leg. Assessment and Plan (1) Trochanteric bursitis of left hip Narrative/Plan: Plan of Care 1. Medications: Patient will continue to utilize [place] as prescribed by her primary care physician. I've encouraged him to consider trialing CBD oil and see if this is helpful. I also instructed them on using Tylenol between her doses of hydrocodone to see if this affords her additional relief of her pain. 2. Interventions: Patient will call and schedule a repeat lumbar epidural steroid injection and trochanteric bursa injection on an as-needed basis. 3. Referrals: None 4. Testing: None 5. Follow-up: As needed Current Visit: Yes Status: Acute Code(s): M70.62 - TROCHANTERIC BURSITIS, LEFT HIP SNOMED Code(s): 2050319 (2) Lumbar facet arthropathy Current Visit: No Status: Chronic Code(s): M46.96 - UNSPECIFIED INFLAMMATORY SPONDYLOPATHY, LUMBAR REGION SNOMED Code(s): 667020722 (3) Lumbar radiculopathy Current Visit: No Status: Chronic Code(s): M54.16 - RADICULOPATHY, LUMBAR REGION SNOMED Code(s): 702231477 (4) Lumbar spinal stenosis Current Visit: No Status: Chronic Code(s): M48.06 - SPINAL STENOSIS, LUMBAR REGION * DO NOT USE * SNOMED Code(s): 87567734 PQRS Measure Charge Sheet Measure #130: Documentation of Current Meds in Medical Chart: Patient not eligible for medications to be documented Measure #226: Tobacco Use: Screen & Cessation Intervention: Pt not a tobacco user Measure #111: Pneumonia Vaccination: Pneumococcal vaccine NOT administered or previously given Measure #47: Advance Care Plan: Advance care planning discussed & documented, pt chose/unable to give Measure #412: Opioid Treatment Agreement: No documentation of signed opioid treatment agreement Measure #408: Opioid Therapy Follow-up Evaluation: Patient had NO f/u eval minimum every 3 months during opioid therapy Measure #317: Preventitive Care & Scrn High Bld Press & F/U: Normal blood pressure, f/u not required Measure #128: Body Mass Index (BMI) Screening & Follow-up: BMI documented within normal parameters Measure #131: Pain Assessment & Follow-up: Pain positive & plan documented Measure #431: Unhealthy Alcohol Use Preventative Care & Scrn: Patient not identified as an unhealthy alcohol user PQRS Narrative: Smoking Status Never smoker Do You Want the Pneumonia No Vaccine AT THIS TIME? Blood Pressure 103/54 Pain Intensity [Bilateral 8 Lower Back] Scale Used Numeric (1 - 10) Hx Alcohol Use (MH) No Home Medications: Ambulatory Orders Simvastatin 40 mg PO MOWEFR 09/06/13 Aspirin 162 mg PO DAILY 11/02/14 Furosemide [Lasix] 20 mg PO MOWEFR 11/02/14 Omeprazole [PriLOSEC] 20 mg PO DAILY 11/02/14 Potassium Chloride ER [K-Dur 10] 10 meq PO MOWEFR 11/02/14 amLODIPine BESYLATE [Norvasc] 5 mg PO MOWEFR 11/02/14 Calcium Carbonate/Vitamin D3 [Calcium 600 + Vit D Tablet] 1 tab PO DIRECTED 01/27/15 HYDROcodone/APAP 5-325MG [[place] 5-325] 0.5 - 1 tab PO Q8HR PRN 01/27/15 Citalopram Hydrobromide [Citalopram HBr] 10 mg PO DAILY PRN 07/05/17 Tolterodine Tartrate [Detrol] 4 tab PO DAILY 12/11/17 Biotin 5,000 mcg PO DAILY 12/19/17 Polyethylene Glycol 3350 [Miralax] 17 gm PO DAILY PRN 01/11/18 Controlled Substance Measures - Controlled Substance Measures Is patient prescribed a controlled substance at discharge?: No
== END | disposition home or self-care (01) ==
LOC: PNWHC3 13:39
PROVIDERS: ATTEND Pain Medicine Pain Medicine
DX: M70.62 Trochanteric bursitis, left hip (principal); M48.061 Spinal stenosis, lumbar region without neurogenic claudication; M46.96 Unspecified inflammatory spondylopathy, lumbar region; M54.16 Radiculopathy, lumbar region; Z79.82 Long term (current) use of aspirin; Z79.899 Other long term (current) drug therapy
CPT/HCPCS: 99211

== ENCOUNTER → 2018-06-03 | Outpatient (CLI) | payer MEDICARE ==
[2018-06-03 13:24] VITALS: BP 129/76; PULSE 62; RESP 16
--- NOTE | 2018-06-03 13:52 | P.PAINPG ---
Subjective Progress Note Date: 06/03/18 Danielle is a pleasant 87-year-old female who presents today with her daughter with continued low back pain. She reports that pain is across her low back and into her hips. She reports she's had some injections in the past after some relief. She reports she had a fall about one week ago and has x-ray scripts but has not had them done yet. She also reports that she has severe arthritis in her hip and he is to have a hip replacement and needs to get cardiology clearance due to her age. She reports the pain comes and goes but is getting worse and causing her pain in the left leg with getting up out of a chair or even rolling on the bed causes her significant amount of pain. She denies any new weakness in her feet or any bowel or bladder incontinence but reports that she did fall about a week ago. She uses hydrocodone from her primary care physician as needed. She denies any side effects from those medications Objective - Vital Signs Vital signs: Vital Signs Temp Pulse 62 06/03/18 13:21 Resp 16 06/03/18 13:21 BP 129/76 06/03/18 13:21 Pulse Ox 97 06/03/18 13:21 Intake & Output 06/02/18 06/03/18 06/03/18 18:59 06:59 18:59 Weight 57.606 kg - Exam General: Awake and alert oriented 3 no distress Respiratory exam: No audible wheezing no accessory muscle usage Cardiovascular exam: regular rate, palpable bilateral pulses, no lower extremity edema Abdominal exam: No distention nontender to palpation Cervical spine: Normal alignment, Spurling's negative, Carcamo's negative Lumbar spine: Loss of lumbar lordosis, evidence of scoliosis, tender to palpation over bilateral paraspinal muscles, facet loading is positive bilaterally. Straight leg raise is negative. Tender to palpation over left trochanteric bursa. His pain with internal and external rotation of the hip. Sacroiliac joints: Nontender to palpation Neuro exam: Normal sensation in bilateral upper extremities, deep tendon reflexes are 2+ bilateral upper extremities. Normal sensation in bilateral lower extremities. Deep tendon reflexes are 1+ in lower extremities, ambulates with a walker. Left lower extremity is weaker compared to the right. Psych exam: Cooperative, appropriate mood Assessment and Plan Assessment: #1 spinal stenosis #2 trochanteric bursitis #3 degenerative disc disease Plan: After examining the patient discussion with her and her daughter. I believe that we can repeat the injection she had done last year which consisted of lumbar epidural steroid injection as well as a left trochanteric bursa injection. We will not write her any medications today. Please review the x- rays that she will have done today. PQRS Measure Charge Sheet Measure #130: Documentation of Current Meds in Medical Chart: Patient's medications documented in chart Measure #226: Tobacco Use: Screen & Cessation Intervention: Pt not a tobacco user Measure #111: Pneumonia Vaccination: Pneumococcal vaccine administered or previously received Measure #47: Advance Care Plan: Advance care planning discussed & documented, plan or surrogate given Measure #412: Opioid Treatment Agreement: No documentation of signed opioid treatment agreement Measure #317: Preventitive Care & Scrn High Bld Press & F/U: Normal blood pressure, f/u not required Measure #128: Body Mass Index (BMI) Screening & Follow-up: BMI documented within normal parameters Measure #131: Pain Assessment & Follow-up: Pain positive & plan documented, Follow-up scheduled Measure #431: Unhealthy Alcohol Use Preventative Care & Scrn: Patient not identified as an unhealthy alcohol user PQRS Narrative: Smoking Status Never smoker Do You Want the Pneumonia Vaccine Up to Date Vaccine AT THIS TIME? Blood Pressure 129/76 Pain Intensity [Left Hip] 4 Scale Used Numeric (1 - 10) Hx Alcohol Use (MH) No Home Medications: Ambulatory Orders Simvastatin 40 mg PO MOWEFR 09/06/13 Aspirin 162 mg PO DAILY 11/02/14 Furosemide [Lasix] 20 mg PO MOWEFR 11/02/14 Omeprazole [PriLOSEC] 20 mg PO DAILY 11/02/14 Potassium Chloride ER [K-Dur 10] 10 meq PO MOWEFR 11/02/14 amLODIPine BESYLATE [Norvasc] 5 mg PO MOWEFR 11/02/14 Calcium Carbonate/Vitamin D3 [Calcium 600 + Vit D Tablet] 1 tab PO DIRECTED 01/27/15 HYDROcodone/APAP 5-325MG [[place] 5-325] 0.5 - 1 tab PO Q8HR PRN 01/27/15 Citalopram Hydrobromide [Citalopram HBr] 10 mg PO DAILY PRN 07/05/17 Tolterodine Tartrate [Detrol] 4 tab PO DAILY 12/11/17 Biotin 5,000 mcg PO DAILY 12/19/17 Polyethylene Glycol 3350 [Miralax] 17 gm PO DAILY PRN 01/11/18 Acetaminophen [Tylenol Arthritis] 650 mg PO BID PRN 06/03/18 Naproxen Sodium [Aleve] 220 mg PO DAILY PRN 06/03/18 Controlled Substance Measures - Controlled Substance Measures Is patient prescribed a controlled substance at discharge?: No
--- NOTE | 2018-06-03 14:45 | XR ---
EXAMINATION TYPE: XR knee limited LT DATE OF EXAM: 06/03/2018 CLINICAL HISTORY: Left knee pain after fall injury. TECHNIQUE: Two views of the left knee are obtained. COMPARISON: None. FINDINGS: Demineralization is present. There is no acute fracture/dislocation evident in left knee. M oderate to severe narrowing patellofemoral compartment is present. There is moderate narrowing medial tibiofemoral compartment. No significant spurring is seen. The overlying soft tissue appears unremar kable. IMPRESSION: There is no acute fracture or dislocation in the left knee.
--- NOTE | 2018-06-03 14:58 | XR ---
EXAMINATION TYPE: XR Hip Complete LT DATE OF EXAM: 06/03/2018 CLINICAL HISTORY: Left hip pain after fall injury. TECHNIQUE: AP and frogleg views of the left hip are obtained. COMPARISON: Left hip x-ray January 29, 2017 FINDINGS: There is no acute fracture/dislocation evident in the left hip. Advanced degenerative reed ges with [id number] formation and extensive subchondral cystic change involving acetabulum and femo ral head are all redemonstrated. There is moderate to severe head neck collar spurring with periphera l heterotopic ossification all redemonstrated. Overlying soft tissue is unremarkable. IMPRESSION: There is no acute fracture or dislocation in the left hip. Advanced degenerative changes left hip joint redemonstrated.
== END | disposition home or self-care (01) ==
LOC: PNWHC3 12:38
PROVIDERS: ATTEND Hospitalist
DX: M48.061 Spinal stenosis, lumbar region without neurogenic claudication (principal); M51.36 Other intervertebral disc degeneration, lumbar region; M70.62 Trochanteric bursitis, left hip
CPT/HCPCS: 73502; 73560; G0463; 99211

== ENCOUNTER → 2018-06-11 | Day surgery (SDC) | payer MEDICARE ==
[2018-06-05 16:12] VITALS: BMI 24.0
[~2018-06-11] MED LIST changes: +IV FLUID CONTINUATION 1,000 ML IV ONE; +LIDOCAINE 1% 20 ML VIAL (10MG/ML) FOR IV START INTRADERMA ONE
[2018-06-11 10:11] VITALS: RESP 16; TEMP 97.4
--- NOTE | 2018-06-11 11:17 | P.PCN ---
Date of Procedure: 06/11/18 Procedure(s) Performed: PREOPERATIVE DIAGNOSIS: 1- Lumbar Degenerative Disc Diseases 2-left trochanter bursitis POSTOPERATIVE DIAGNOSIS: 1-Lumber Degenerative Disc Diseases 2-left trochanteric bursitis PROCEDURE 1. Lumbar epidural steroid injection under fluoroscopic guidance at the L5-S1 level.under Fluroscopy Guidence 2. Lumbar epidurogram. 3-left trochanteric bursa steroid injections under fluoroscopy guidance ANESTHESIA: Local with 1% lidocaine 3 ml and , moderate sedation with intraven ous Versed 1 mg . EBL: Minimal PROCEDURE INDICATION: The patient with low back pain and radiculitis symptoms unresponsive to conservative treatment. Fluoroscopy was used to optimize visualization of the needle placement and to maximize safety. PROCEDURE DESCRIPTION / TECHNIQUE: The patient was seen and identified in the preoperative area. Risks, benefits, complications including but not limited to infections ,bleeding ,allergic reaction to the medications ,nerve damage and not complete pain releife , and alternatives were discussed with the patient. The patient agreed to proceed with the procedure and signed the consent. IV was started, and vital signs were stable. Patient was taken to the OR and time out was completed. The patient was placed in the prone position on procedure table and a pillow was placed under the abdomen to reduce lumbar lordosis. The lumbosacral area was prepped and draped in the usual sterile fashion.ere closely monitored during the procedure. Conscious sedation was used during the procedure to decrease patients anxiety. Vital signs was monitered during the entire procedure. Using anterior-posterior fluoroscopy, the L5-S1 interlaminar space was i dentified and the skin over this site was marked and then infiltrated with 1% lidocaine subcutaneously. Subsequently, a 20-gauge Tuohy epidural needle was inserted and advanced toward the epidural space using the ``Loss of resistance technique and guided by AP and lateral fluoroscopy. The correct needle position in the epidural space was verified with the injection of 2 mL of the water soluble contrast dye Isovue 200 contrast and observing an excellent epidurogram with the epidural spread of the dye, after negative aspiration for blood and CSF and in the absence of paresthesias. Again after negative aspiration, a 6 ml mixture containing 40 mg of Depo-Medrol, and 2 ml of preservative free Normal Saline, and 2 ml of preservative free lidocaine 1% solution was injected and a washout of epidurogram was seen. Needle was withdrawn intact, skin was cleansed, and bandages were applied. In the left trochanteric bursa area prepped with chlorhexidine 3 , and under sterile technique 25-gauge Quincke Needle advanced slowly under fluoroscopy and placed in the left trochanteric bursa area, needle placement confirmed with AP and lateral views and after negative aspiration, bupivacaine 0.5% 5 ML and 20 mg of Depo-Medrol injected in the left trochanteric bursa after negative aspiration patient tolerated the procedure well without any complications COMPLICATIONS: None DISPOSITION / PLANS: The patient was placed in a supine position and transferred to the recovery area in a stable condition for observation. There was no evidence of lower extremity motor or sensory deficit after the procedure. Patient was discharged from the recovery room after meeting discharge criteria. Home discharge instructions were given to the patient by the staff. The patient was reexamined prior to discharge. The patient will schedule a follow up in the clinic in 2-4 weeks.
--- NOTE | 2018-06-11 11:35 | FL ---
EXAMINATION TYPE: FL guided pain mgmt statistic DATE OF EXAM: 06/11/2018 HISTORY: Pain 3 sec fl time used during lumbar epidural and left trochanter injection
[2018-06-11 11:49] VITALS: BP 147/69; PULSE 60
== END | disposition home or self-care (01) ==
LOC: ORPAIN 09:54
PROVIDERS: ATTEND Specialist
DX: M51.16 Intervertebral disc disorders with radiculopathy, lumbar region (principal); M70.62 Trochanteric bursitis, left hip
CPT/HCPCS: 62323; 20610; J2250; J1030; Q9966; 99152

== ENCOUNTER → 2018-06-25 | Outpatient (CLI) | payer MEDICARE ==
[2018-06-25 13:22] VITALS: BP 142/62; PULSE 70; RESP 16
--- NOTE | 2018-06-25 19:41 | P.PAINPG ---
Subjective Progress Note Date: 06/25/18 This is follow-up visit for this patient with a history of severe and chronic low back pain secondary to lumbar degenerative disc diseases , left trochanteric bursitis We have done interventional pain procedures lumbar epidural steroid injections, and left trochanteric bursa steroid injection, she had good pain relief, but currently she is complaining of pain with activity in the left hip area, has severe pain in the left hip when she is ambulating Patients currently on [place]ore 5/325 every 6 hours when necessary, she is getting prescription refill from her primary care Patient denies any side effects of the medication, denies excessive drowsiness or sleepiness, denies suicidal ideation, and reports that the current pain medication is helping to control the pain ,and improve activity of daily living Patient ambulates using cane, and she feels that her lower extremity weaker than usual , patient denies any fever or night sweats, denies any change in the bowel movements or urination Physical Examinations : -Constitutional : Cooperative , not in acute distress . -HEENT : nech ; supple , no Lymphadenopathy , no Thyromegaly , normal thyroid size . eyes : no ptosis , no icterus, no photophobia . - neurologic: Cranial nerve II to XII intact , no focal neurological deffecit . - Psychatric: alert , oriented X 3 , appropriate affect , intact judgment and insight . - Lymphatic : no Lymphadenopathy . - Musculoskeltal : exams of the Lumber spine =motor strength lower extremities ,thigh and legs 3-.4/5 lumber facet Loading Test positive strait leg raising test positive at 30 degree , RT ,LT , Fabere test positive RT and positive LT . Range of motion: Range of motion in flexion of the lumbar spine 30 degrees Range of motion range of motion of extension of the lumbar spine 10 Sever tenderness over the trochanteric bursa on the Left side Severe tenderness over the left sacroiliac joint Flexion extension and lateral rotation of the left hip associated with severe pain X-ray of the left hip done previously showed osteoarthritis of the left hip Assessment and plan = Chronic low back pain secondary to with radiation to the lower extremities secondary to lumbar degenerative disc disease , left trochanteric bursitis. Osteoarthritis of the left hip Patient could benefit from left hip steroid injection, the fluoroscopy guidance . Procedures the risk and benefits and alternatives discussed with the patient she agreed with the preceding. Patient will continue to use Anmoore 5/325 and naproxen to 220 when necessary Objective - Vital Signs Vital signs: Vital Signs Temp Pulse 70 06/25/18 13:12 Resp 16 06/25/18 13:12 BP 142/62 06/25/18 13:12 Pulse Ox 95 06/25/18 13:12 Intake & Output 06/25/18 06/25/18 06/26/18 06:59 18:59 06:59 Weight 56.699 kg PQRS Measure Charge Sheet Measure #130: Documentation of Current Meds in Medical Chart: Patient's medications documented in chart Measure #226: Tobacco Use: Screen & Cessation Intervention: Pt not a tobacco user Measure #111: Pneumonia Vaccination: Pneumococcal vaccine administered or previously received Measure #47: Advance Care Plan: Advance care planning discussed & documented, pt chose/unable to give Measure #412: Opioid Treatment Agreement: No documentation of signed opioid treatment agreement Measure #408: Opioid Therapy Follow-up Evaluation: Patient had NO f/u eval minimum every 3 months during opioid therapy Measure #317: Preventitive Care & Scrn High Bld Press & F/U: Pre-hypertensive or hypertensive BP documented, pt will f/u with PCP Measure #128: Body Mass Index (BMI) Screening & Follow-up: BMI documented within normal parameters Measure #131: Pain Assessment & Follow-up: Pain positive & plan documented, Follow-up scheduled Measure #431: Unhealthy Alcohol Use Preventative Care & Scrn: Patient not identified as an unhealthy alcohol user PQRS Narrative: Smoking Status Never smoker Do You Want the Pneumonia Yes Vaccine AT THIS TIME? Blood Pressure 142/62 Pain Intensity [Left Hip] 5 Scale Used Numeric (1 - 10) Hx Alcohol Use (MH) No Home Medications: Ambulatory Orders Simvastatin 40 mg PO MOWEFR 09/06/13 Aspirin 162 mg PO DAILY 11/02/14 Furosemide [Lasix] 20 mg PO MOWEFR 11/02/14 Omeprazole [PriLOSEC] 20 mg PO DAILY 11/02/14 Potassium Chloride ER [K-Dur 10] 20 meq PO MOFR 11/02/14 amLODIPine BESYLATE [Norvasc] 5 mg PO MOWEFR 11/02/14 Calcium Carbonate/Vitamin D3 [Calcium 600 + Vit D Tablet] 1 tab PO DAILY 01/27/15 HYDROcodone/APAP 5-325MG [Anmoore 5-325] 0.5 - 1 tab PO Q8HR PRN 01/27/15 Citalopram Hydrobromide [Citalopram HBr] 10 mg PO DAILY PRN 07/05/17 Tolterodine Tartrate [Detrol] 4 tab PO DAILY 12/11/17 Biotin 5,000 mcg PO DAILY 12/19/17 Polyethylene Glycol 3350 [Miralax] 17 gm PO DAILY PRN 01/11/18 Acetaminophen [Tylenol Arthritis] 650 mg PO BID PRN 06/03/18 Potassium Chloride 10 meq PO WE 06/05/18 Meloxicam [Mobic] 1 tab PO DAILY 06/25/18 Controlled Substance Measures - Controlled Substance Measures Is patient prescribed a controlled substance at discharge?: No
== END | disposition home or self-care (01) ==
LOC: PNWHC3 12:44
PROVIDERS: ATTEND Specialist
DX: G89.29 Other chronic pain (principal); M51.36 Other intervertebral disc degeneration, lumbar region; M70.62 Trochanteric bursitis, left hip; M17.12 Unilateral primary osteoarthritis, left knee; Z98.890 Other specified postprocedural states; Z79.891 Long term (current) use of opiate analgesic; Z79.899 Other long term (current) drug therapy; Z79.82 Long term (current) use of aspirin
CPT/HCPCS: 99211

== ENCOUNTER → 2018-07-04 | Day surgery (SDC) | payer MEDICARE ==
[2018-07-02 10:35] VITALS: BMI 23.6
[2018-07-04 09:57] VITALS: TEMP 96.9
--- NOTE | 2018-07-04 10:17 | P.PCN ---
Date of Procedure: 07/04/18 Surgeon: Blaire Jones Pathology: none sent Condition: stable Disposition: PACU Description of Procedure: Pre OP diagnoses= Left trochanteric bursitis . Postoperative diagnosis= Left trochanteric bursitis. Operation=Left trochanteric bursa steroid injection under fluoroscopy guidance. Anesthesia= IV sedation with i mg of Versed , and local infiltration with lidocaine 1% 2 mL . Complications= none . Risks and benefits of the procedure including but not limited to risk of infection and bleeding and not complete pain relief and ALLERGIC reaction to medication discussed with the patient and the alternative also discussed with the patient and she agreed with proceding .Patient was taken to the operating room placed in supine position , standard monitors applied , the hip area was prepped with chlorhexidine 3 times, and under sterile technique using 25-gauge needle for skin and subcutaneous tissue infiltration was first admitted the left trochanteric bursa injection at 22-gauge Quincke-type spinal needle advanced slowly under fluoroscopy and placed in the left trochanteric bursa needle placement confirmed with AP and lateral view and after appropriate needle placement confirmed under fluoroscopy for ML of Marcaine 0.5% mixed with 40 mg of Kenalog injected after negative aspiration for heme , there was no paresthesia during the injection and needle removed and a dressing applied.Amor nt tolerated the procedure well without any complication and she will follow up with the pain clinic in a few weeks and patient discharged home in stable condition
--- NOTE | 2018-07-04 10:33 | FL ---
EXAMINATION TYPE: FL guided pain mgmt statistic DATE OF EXAM: 07/04/2018 CLINICAL HISTORY: Left bursal pain. TECHNIQUE: Fluoroscopy. COMPARISON: None. FINDINGS: Fluoroscopic guidance was provided during pain relief procedure performed by Dr. Gaytan . A total of 3 seconds of fluoroscopic time was utilized during the procedure and 1 spot images are acquired. Images acquired shows needle localization of the left greater trochanter. IMPRESSION: As Above.
[2018-07-04 10:37] VITALS: PULSE 60
[2018-07-04 10:49] VITALS: BP 126/61; RESP 17
== END ==
LOC: ORPAIN 09:24
PROVIDERS: ATTEND Anesthesiology
DX: M70.62 Trochanteric bursitis, left hip (principal); I10 Essential (primary) hypertension
CPT/HCPCS: 77002; 20610; J2250; J3301

== ENCOUNTER → 2018-07-23 | Outpatient (CLI) | payer MEDICARE ==
[2018-07-23 13:29] VITALS: BP 133/69; PULSE 72; RESP 18
--- NOTE | 2018-07-23 13:48 | P.PN ---
Subjective Progress Note Date: 07/23/18 Danielle is a 80-year-old female presents today for follow-up. She recently had a left-sided trochanteric bursa injection. She reports that her pain is significant better. She pushes Errol Sd leg is able to do more around the house. He with her daughter today. They're inquiring about the next course of action. They're inquiring about whether or not she should exercise or do things around the house. She is very pleased with the outcome of the injection. She did not think that the epidural steroid injection offered her very much benefit. Objective - Vital Signs Vital signs: Vital Signs Temp Pulse 72 07/23/18 13:24 Resp 18 07/23/18 13:24 BP 133/69 07/23/18 13:24 Pulse Ox 100 07/23/18 13:24 Intake & Output 07/22/18 07/23/18 07/23/18 18:59 06:59 18:59 Weight 56.699 kg - Exam General: Awake and alert oriented 3 no distress Respiratory exam: No audible wheezing no accessory muscle usage Cardiovascular exam: regular rate, palpable bilateral pulses, no lower extremity edema Abdominal exam: No distention nontender to palpation Cervical spine: Normal alignment, protective officer strength is 5 out of 5 Lumbar spine: Loss of lumbar lordosis, normal alignment, minimal tenderness to palpation over bilateral paraspinal muscles, facet loading is positive bilaterally. Straight leg raise is negative. No tenderness over the left trochanteric bursa over the right trochanteric bursa Neuro exam: Normal sensation in bilateral upper extremities, deep tendon reflexes are 2+ bilateral upper extremities. Normal sensation in bilateral lower extremities. Deep tendon reflexes are 2+ in lower extremities Psych exam: Cooperative, appropriate mood Assessment and Plan Assessment: Lumbar radiculopathy Trochanteric bursitis Plan: At this point recommend that we hold off on doing any further injections. The patient is doing well. I highly recommend doing exercises at home on a regular basis. She has home exercises that were given to her from physical therapy. The daughter is also about her stationary bike to use at home. I advised that her pain begins to come back any time should give us a call back and we can schedule the injection without seeing her in the office for follow-up, but would like to hold off at least another 2-3 months at this time.
== END ==
LOC: PNWHC3 13:12
PROVIDERS: ATTEND Hospitalist
DX: M54.16 Radiculopathy, lumbar region (principal); M70.60 Trochanteric bursitis, unspecified hip
CPT/HCPCS: 99211

== ENCOUNTER → 2018-09-30 | Outpatient (CLI) | payer MEDICARE ==
--- NOTE | 2018-09-30 14:09 | BD ---
EXAMINATION TYPE: Axial Bone Density DATE OF EXAM: 09/30/2018 COMPARISON: 2014 CLINICAL HISTORY: Age-related osteoporosis, M [age] Height: 59 inches Weight: 124 FRAX RISK QUESTIONS: Alcohol (3 or more units per day): no Family History (Parent hip fracture): no Glucocorticoids (More than 3mos): no (Ex: prednisone, prednisolone, methylprednisolone, dexamethasone, and hydrocortisone). History of Fracture in Adulthood: yes, tailbone Secondary Osteoporosis: 1. Type 1 Diabetes: no 2. Hyperthyroidism: no 3. Menopause before 45: no 4. Malnutrition: no 5. Chronic liver disease: no Rheumatoid Arthritis: no Current Tobacco Use: no RISK FACTORS HISTORY OF: Spine Fracture: yes, tailbone When: unsure Family History of Osteoporosis: unsure Active: limited, uses wheelchair Diet low in dairy products/other sources of calcium: at least one serving a day Postmenopausal woman: yes Take estrogen and/or progesterone medications: no Lost more than 2 inches in height since high school: yes Frequent falls: no, balance loss at times Poor Health: no Hyperparathyroidism: no Adrenal Insufficiency: no MEDICATIONS: Prednisone or other steroids: no Thyroid Medications: no Osteoporosis Medications: not now Which medication: Fosamax How Long: unsure Additional Medications: calcium , blood pressure med Additional History: osteoarthritis, breast CA 54/radiation, history; frequent injections to spine und er mild sedation for pain relief EXAM MEASUREMENTS: Bone mineral densitometry was performed using the [employer] System. Bone mineral density as measured about the Lumbar spine is: ----- L1-L4(G/cm2): 1.282 T Score Values are as follows: ----- L2: 1.2 ----- L3: 1.4 ----- L4: 0.6 ----- L1-L4: 0.9 Bone mineral density has: Decreased -0.4% since study of: 01/11/2015 Bone mineral density about the R hip (g/cm2): 0.836 Bone mineral density about the L hip (g/cm2): 0.935 T Score values are as follows: -----R Neck: -1.4 -----L Neck: -0.7 -----R Total: -1.4 -----L Total: -1.6 Bone mineral density has: Decreased -6.9% since study of: 01/11/2015 IMPRESSION: Osteopenia (T Score between -2.5 and -1). There is slightly increased risk of fracture and the patient may be considered for treatment. Re-Screen 2-5 years. NOTE: T-SCORE=SD OF THE YOUNG ADULT MEAN.
--- NOTE | 2018-10-02 07:49 | MM ---
Reason for exam: screening (asymptomatic). Last mammogram was performed 1 year ago. History: Patient is postmenopausal and has history of breast cancer at age 54. Family history of breast cancer in maternal aunt at age 70 and breast cancer in paternal aunt at age 70. Radiation therapy of the left breast, 1984. Lumpectomy of the left breast. MG 3D Screening Mammo W/Cad Bilateral CC and MLO view(s) were taken. XCCL view(s) were taken of the right breast. Prior study comparison: September 27, 2017, bilateral MG 3d screening mammo w/cad. July 19, 2016, bilateral MG diagnostic mammo w CAD [place]. There are scattered fibroglandular densities. No significant new finding when compared with prior studies. ASSESSMENT: Benign, BI-RAD 2 RECOMMENDATION: Routine screening mammogram of both breasts in 1 year.
== END | disposition home or self-care (01) ==
LOC: RADMAMWWP 11:07
PROVIDERS: ATTEND Internal Medicine
DX: Z12.31 Encounter for screening mammogram for malignant neoplasm of breast (principal); M85.80 Other specified disorders of bone density and structure, unspecified site
CPT/HCPCS: 77063; 77067; 77080